=== PATIENT | male | born 1950 | race Caucasian/White ===

== ENCOUNTER 2021-01-20 19:06 | Emergency (ER) | payer OTHER, BC ==
[~2021-01-20] VITALS: Ht 177.8 cm; Wt 93.4 kg
[2021-01-20] MEDS ORDERED: ELIQUIS (19:30)
[2021-01-21] MEDS ORDERED: LEVSIN/SL0.125 MG SL (02:03)
[2021-01-21] MEDS ORDERED: INTESTINEX680 M1 PO (02:03)
== END 2021-01-21 02:24 ==
LOC: ER 19:06
DX: K57.90 Diverticulosis of intestine, part unspecified, without perforation or abscess without bleeding (principal)

== ENCOUNTER 2021-12-06 08:05 | Inpatient (IN) | payer OTHER, BC ==
[~2021-12-06] VITALS: Ht 177.8 cm; Wt 93.4 kg
[~2021-12-06 08:05] MED LIST: ELIQUIS; INTESTINEX680 M1 PO; LEVSIN/SL0.125 MG SL
[2021-12-06] MEDS ORDERED: ZESTRIL20 MG PO (08:17)
[2021-12-06] MEDS ORDERED: LIPITOR40 M1 PO (08:17)
[2021-12-06] MEDS ORDERED: ELIQUIS5 MG PO (08:17)
[2021-12-06] MEDS ORDERED: AMLODIPINE-OLM1 EAC3 PO (08:17)
[2021-12-06] MEDS ORDERED: PEPCID AC10 MG PO (08:18)
[2021-12-06] MEDS ORDERED: B12 ACTIVE1000 MCG PO (08:18)
--- NOTE | 2021-12-06 08:19 | NUR ---
SE RECIBE PTE ALERTA Y ORIENTADO X3 CUAL REFIERE DOLOR ABDOMINAL DESDE JOYCELYN, PTE CON 2 OPERACIONES GASTROINTESTINALES. SE LAURITA S/V, SE REALIZA EKG Y SE UBICA
--- NOTE | 2021-12-06 08:22 | NUR ---
PTE CON VOMITOS X2 AL MOMENTO DE TRIAGE
--- NOTE | 2021-12-06 08:45 | NUR ---
PACIENTE EVALUADO POR DR LARSEN QUIEN ORDENA TRATAMIENTO MEDICO, MARISSA RUCKER LE ORIENTA A PACIENTE SOBRE EL MISMO Y REFIERE ENTENDER, LE COLECTA MUESTRAS DE LABORATORIO Y LE CANALIZA BAJO MEDIDAS ASEPTICAS, SE LE HACE ENTREGA A PACIENTE DE CONTRASTE PARA ESTUDIO Y SE LE INDICA QUE NOTIFIQUE SMITH PRONTO CULMINE EL MISMO. SE LLAMA A PERSONAL DE TERAPIA RESPIRATORIA Y SE LE NOTIFICAN ABG A MS JOLLY. PENDIENTE ESTUDIO DE LUDWIN X Y CT. SE MANTIENE PACIENTE BAJO OBSERAVCION POR CAMBIOS SIGNFICATIVOS EN CHEUNG TRATAMIENTO MEDICO.
== END 2021-12-09 10:47 | disposition left against medical advice (07) | DRG 340 ==
LOC: ER 08:05 → SURG 18:42
PROVIDERS: Surgery; ADMIT Internal Medicine; ATTEND Internal Medicine
PROC: BW21YZZ Computerized Tomography (CT Scan) of Abdomen and Pelvis using Other Contrast (ICD-10-PCS; 2021-12-06)
PROC: 0DTJ4ZZ Resection of Appendix, Percutaneous Endoscopic Approach (ICD-10-PCS; principal; 2021-12-07 17:30)
DX: K35.32 Acute appendicitis with perforation, localized peritonitis, and gangrene, without abscess (principal); Z20.822 Contact with and (suspected) exposure to COVID-19; E11.9 Type 2 diabetes mellitus without complications